=== PATIENT | male | born 1985 | race Hispanic/Latino ===

== ENCOUNTER 2022-08-02 13:23 | Emergency (ER) | payer SELFPAY ==
--- NOTE | ~2022-08-02 | CT_ITS ---
EXAMINATION: CT abdomen pelvis w con DATE: 08/02/2022 18:24 INDICATION: Bilateral lower abdomen pain, flank pain TECHNIQUE: Computed tomography (CT) of the abdomen and pelvis was performed with 100 CC Omnipaque 350 intravenous contrast. Automated exposure control and iterative reconstruction technique were employe d. Exam dose: 359.77 mGy-cm total exam DLP. COMPARISON: None. FINDINGS: Left lower lobe calcified pulmonary granulomas. Minimal dependent bilateral lower lobe atel ectasis. Normal heart size. No pericardial or pleural effusion. The liver, gallbladder, bile ducts, spleen, pancreas, pancreatic duct, and adrenal glands and kidneys are unremarkable. No urinary tract calculus or hydroureteronephrosis. The urinary bladder and prosta te gland are unremarkable. Normal caliber of the abdominal aorta. No intraperitoneal or retroperitoneal or pelvic mass lesion or adenopathy or ascites. Normal appendix. No bowel obstruction, bowel wall thickening, pneumatosis or intraperitoneal free air . Very slight fat-containing umbilical hernia. Included skeletal structures are unremarkable. IMPRESSION: No significant abnormality Reviewed, dictated and finalized at [facility]. Reviewed, dictated and finalized at [facility]. IMPRESSION: No significant abnormality
[2022-08-02 14:22] VITALS: BP 119/71; PULSE 73; RESP 16; TEMP 36; O2SAT 100
[2022-08-02 14:41] LABS: Basophils Absolute Auto 0.1 K/mm3 (0.0-0.1); Basophils Percent Auto 0.8 % (0.2-1.2); Eosinophils Absolute Auto 0.2 K/mm3 (0-0.3); Eosinophils Percent Auto 2.4 % (0-4.4); Hematocrit 45.9 % (42.0-52.0); Hemoglobin 16.1 g/dL (14.0-18.0); Immature Granulocyte Absolute 0.02 K/mm3 (0.00-0.031); Immature Granulocyte Percent A 0.3 % (0-0.5); Lymphocytes Absolute Auto 2.12 K/mm3 (0.9-3.2); Lymphocytes Percent Auto 32.2 % (18.3-44.2); Mean Corpuscular HGB Conc 35.1 g/dl (32-36); Mean Corpuscular Hemoglobin 33.4 pg (26-34); Mean Corpuscular Volume 95.2 fl (80-100); Mean Platelet Volume 10.3 fl (7.4-10.4); Monocytes Absolute Auto 0.4 K/mm3 (0.1-0.6); Monocytes Percent Auto 6.4 % (2.6-8.5); Neutrophils Absolute Auto 3.8 K/mm3 (1.3-6.7); Neutrophils Percent Auto 57.9 % (45.5-73.1); Platelet Count Result 204 k/mm3 (150-375); Red Blood Count 4.82 M/mm3 (4.6-6.20); Red Cell Distribution Width 12.7 % (11.5-14.5); White Blood Count 6.6 K/mm3 (4.5-10.0)
[2022-08-02 14:56] VITALS: TEMP 36.6
[2022-08-02 15:01] LABS: Alanine Aminotransferase 41 U/L (6-50); Albumin Level 4.7 g/dL (3.5-5.1); Alkaline Phosphatase 94 U/L (38-126); Anion Gap 9 mmol/L (8-16); Aspartate Amino Transferase 35 U/L (17-59); Bilirubin,Total 0.7 mg/dL (0.2-1.3); Blood Urea Nitrogen 12 mg/dL (9-20); Calcium 8.9 mg/dL (8.4-10.2); Carbon Dioxide 27 mmol/L (22-30); Chloride 105 mmol/L (98-107); Estimated CRCL calculation 109 ml/min; Estimated Glomerular Filt Rate > 60; Glucose 93 mg/dL (65-110); Sodium 141 mmol/L (137-145)
[2022-08-02 17:10] LABS: Appearance Urine Clear (Clear); Bilirubin Urine Negative (Negative); Blood Urine Negative (Negative); Color Urine Yellow (Yellow); Glucose Urine UA Negative (Negative); Ketones Urine Negative (Negative); Leukocyte Esterase Ur Negative LEU/UL (Negative); Nitrate Urine Negative (Negative); Protein Urine Negative (Negative); Specific Grav Ur 1.014 (1.001-1.035); pH Urine 7.5 (5.0-9.0)
[2022-08-02 17:23] LABS: Add Urine Microscopic? NO
--- NOTE | 2022-08-02 17:37 | ED.GENADULT ---
HPI - General Adult General Chief complaint: Abdominal Pain Stated complaint: abdominal pain Time Seen by Provider: 08/02/22 17:28 Source: patient Mode of arrival: ambulatory Limitations: no limitations and language barrier History of Present Illness HPI narrative: Patient is a 36 y/o male who presents to the ED with c/o bilateral lower abdomen and flank pain. Patient is primarily Italian-speaking. [employer] was utilized for assistance with translation. Patient reports having pain in his lower abdomen and mid/lower back for the last 2 to 3 weeks. He states the pain has become worse more recently and kept him up at night last night. He has tried Tylenol a few times for the pain, but denied relief. He does feel like he is somewhat bloated and has increased flatulence, denies diarrhea, constipation. Last bowel movement this morning and normal. Denies rectal bleeding, melena. Denies nausea, vomiting, urinary symptoms, fevers. Related Data Allergies Allergy/AdvReac Type Severity Reaction Status Date / Time No Known Allergies Allergy Verified 08/02/22 18:02 Review of Systems Review of Systems: CONSTITUTIONAL: Denies fever, chills, or sweats. CARDIOVASCULAR: Denies chest pain. RESPIRATORY: Denies dyspnea. GASTROINTESTINAL: See HPI. GENITOURINARY: Denies dysuria or hematuria. MUSCULOSKELETAL: See HPI. NEUROLOGIC: Denies headache, numbness, or weakness. All systems reviewed & are unremarkable except as noted in HPI and below PMFSH Past Medical History Medical History (Updated 08/02/22 @ 19:37 by Nishi Díaz PA-C) No pertinent past medical history Surgical History Surgical History (Updated 08/02/22 @ 18:57 by Nishi Díaz PA-C) No pertinent past surgical history Social History Social History (Updated 08/02/22 @ 18:57 by Nishi Díaz PA-C) Smoking status: Never smoker Exam Narrative: GENERAL: Well appearing, well-nourished, non-toxic, in no acute distress. HEAD: Normocephalic, atraumatic. NECK: Supple. No adenopathy, no masses. RESPIRATORY: Airway patent, respirations nonlabored. Clear to auscultation bilaterally, no rales, rhonchi, wheezing. CARDIOVASCULAR: Regular rate and rhythm without murmurs, rubs, or gallops. Peripheral pulses 2+ and equal bilaterally. ABDOMINAL: Soft, mild tenderness throughout right lower abdomen, nondistended, no hepatosplenomegaly. Normoactive BS. MUSCULOSKELETAL: Moves all extremities. Strength/ROM intact without gross deformities. No significant tenderness throughout lumbosacral region. No midline spinal tenderness. SKIN: Warm, dry, normal color. No rashes. NEURO: A&O X3. Speech clear. Cranial nerves II-XII grossly intact. Steady gait. No ataxic movements. PSYCHIATRIC: Appropriate mood and affect. Normal interaction. Course Vital Signs Vital signs: Vital Signs Temperature 96.8 F L 08/02/22 14:22 Pulse Rate 73 08/02/22 14:22 Respiratory Rate 16 08/02/22 14:22 Blood Pressure 119/71 08/02/22 14:22 Pulse Oximetry 100 08/02/22 14:22 Oxygen Delivery Room Air 08/02/22 14:22 Temperature 97.8 F 08/02/22 14:56 Pulse Rate 67 08/02/22 18:01 Respiratory Rate 17 08/02/22 18:01 Blood Pressure 109/84 08/02/22 18:01 Pulse Oximetry 98 08/02/22 18:01 Oxygen Delivery Room Air 08/02/22 14:22 Medical Decision Making MDM Narrative Medical decision making narrative: Patient presented to ED with 2 to 3-week history of lower abdominal, lower back pain. No other significant associated symptoms. Vitals stable. Blood work and urinalysis without any abnormalities. CT scan of abdomen pelvis was obtained and without acute findings. Discussed lab and imaging findings with patient and likelihood of musculoskeletal pain. Patient feeling better after Tylenol and Toradol in the ED. Pain much improved. Advised to continue Tylenol and ibuprofen as needed for pain and follow-up with primary care doctor for further evaluation.
[2022-08-02 18:01] VITALS: BP 109/84; PULSE 67; RESP 17; O2SAT 98
--- NOTE | 2022-08-02 18:18 | PC.NURSE ---
Pt to CT scan via stretcher at this time.
[2022-08-02] MEDS: SODIUM CHLORIDE 0.9% IV 1,000 ML 999 ML IV CONT (18:27)
[2022-08-02] MEDS: KETOROLAC 30 MG/ML VIAL (*BKC) IV PUSH (18:51)
== END 2022-08-02 20:25 | disposition home or self-care (01) ==
PROVIDERS: Emergency Medicine; Emergency Provider Physician Assistant
DX: R10.31 Right lower quadrant pain (principal); R10.32 Left lower quadrant pain
CPT/HCPCS: 36415; 74177; 80053; 81003; 85025; 96361; 96365; 96375; 99284; J0131; J1885; J7030; Q9967